=== PATIENT | female | born 1970 | race Caucasian/White ===

== ENCOUNTER 2021-05-25 13:23 | Outpatient (REF) | payer OTHER, SELFPAY ==
--- NOTE | ~2021-05-25 | FL_ITS ---
EXAMINATION: FL FLUOROSCOPIC GUIDED SHOULDER ARTHROGRAM, RIGHT CLINICAL INFORMATION: Chronic shoulder pain. Injection prior to MRI. COMPARISON: None TECHNIQUE: Proper informed consent is obtained from the patient after discussion of the procedure, potential risks and complications, and alternatives including declining the procedure today. Patient was given an opportunity for questions. The patient appeared to understand. The patient consented to the procedure and signed the consent form. Skin is prepped and draped. Local anesthesia is provided using 7 mL 1% lidocaine. Under fluoroscopic guidance, a 22-gauge spinal needle was positioned into the shoulder joint capsule from an anterior approach. Needle tip position is validated with injection of 1.5 mL Omnipaque 300 contrast. Subsequently, the patient received a 9 mL injection consisting of Gadavist 1% mixed with sterile normal saline. The patient tolerated the procedure well and had no immediate complication. Sterile dressing was placed and home instructions reviewed with the patient. MRI is described in separate report. Fluoroscopy time: 0.6 minutes DAP: 1.017 Gycm2 Images: 4 FL/FL arthrogram shoulder RT IMPRESSION: 1. Status post fluoroscopic guided right shoulder injection dilute gadolinium contrast. 2. See post-arthrography MRI report for further information.
--- NOTE | ~2021-05-25 | MR_ITS ---
EXAMINATION: MR SHOULDER WITH CONTRAST, RIGHT CLINICAL INFORMATION: Right shoulder pain for one year. Evaluate for rotator cuff tendon pathology. COMPARISON: Right shoulder fluoroscopic arthrography done earlier the same day. TECHNIQUE: MRI of the shoulder was performed following the intra-articular administration of a dilute gadolinium-containing solution (arthrogram) on a high-field scanner. FINDINGS: ROTATOR CUFF: There is supraspinatus and infraspinatus tendinosis with contrast extending throughout the distal tendon fibers, likely related to the contrast injection. Minimal contrast within the joint space. There is probable bursal surface fraying of the distal supraspinatus and infraspinatus tendon without a measurable full-thickness rotator cuff tendon tear. Subscapularis tendinosis with possible linear intrasubstance partial tearing. No muscle atrophy or fatty infiltration. BICEPS: Normal. CORACOACROMIAL ARCH: The undersurface of the acromion is curved with no subacromial spur. Mild acromioclavicular osteoarthritis. LABRUM/CAPSULE: Thin fluid signal within the undersurface of the superior labrum, likely representing a nondisplaced undersurface tear. Intact joint capsule. GLENOHUMERAL JOINT/MARROW: Intact articular cartilage. Degenerative cystic change within the greater tuberosity. MR/MR shoulder RT w con IMPRESSION: 1. Supraspinatus and infraspinatus tendinosis with probable bursal surface fraying. Contrast throughout the distal tendons, likely related to the injection. Subscapularis tendinosis with possible linear intrasubstance partial tearing. No measurable full-thickness rotator cuff tendon tear. Degenerative cystic change within the underlying greater tuberosity. 2. Mild acromioclavicular osteoarthritis. 3. Possible nondisplaced undersurface tear of the superior labrum.
== END 2021-05-25 13:24 | disposition home or self-care (01) ==
LOC: HO.XRAY 13:23
PROVIDERS: PCP Family Medicine; Visit Provider Family Medicine
DX: G89.29 Other chronic pain (principal); M25.511 Pain in right shoulder
CPT/HCPCS: 23350; 73040; 73222; A9585